=== PATIENT | female | born 1995 | race Caucasian/White ===

== ENCOUNTER 2017-11-12 18:19 | Emergency (ER) | payer OTHER ==
--- NOTE | 2017-11-12 18:59 | EDPHY ---
H & P Stated Complaint: ST, left eye discharge, jaw pain Time Seen by Provider: 11/12/17 18:58 HPI/ROS: HPI: Is a 22-year-old female who presents with Chief Complaint: ST, left eye discharge, jaw pain Location: Throat Quality: Sore Duration: 3 days Signs and Symptoms: No fever, no cough, + ear pain, + left eye discharge, no itchy watery eye, no nasal congestion, no headache, stiff neck Timing: Daily Severity: [id number] Context: Patient is generally healthy presents with complaints of sore throat x4 days but still able to eat and drink denies fever, cough, neck stiffness, headache. Patient also woke up this morning with left eye discharge that was green in color. Denies any eye redness/visual floaters/visual changes/foreign bodies. Does not wear contact lenses. Patient has tried no [id number] medication. Modifying Factors: None Comment: ROS: see HPI Constitutional: No fever, no chills, no weight loss Eyes: No blurred vision Respiratory: No shortness of breath, no cough Cardiovascular: No chest pain Gastrointestinal: No nausea, no vomiting, no diarrhea Genitourinary: No dysuria Extremities: No myalgias Neurologic: No weakness, no numbness Skin: No rashes Hematologic: No bruising, no bleeding MEDICAL/SURGICAL/SOCIAL HISTORY: Medical history: Depression Surgical history: Denies Social history: Student. CONSTITUTIONAL: Extremely well-appearing teenage white female, awake and alert , no obvious distress HEENT: Atraumatic and normocephalic, PERRL, EOMI. Conjunctiva clear; white matting noted in eyelashes bilaterally. Tympanic membranes clear. Oropharynx clear, no tonsillar hypertrophy, no exudate and moist pink mucosa. Airway patent. No lymphadenopathy. No meningismus. Cardiovascular: Normal S1/S2, regular rate, regular rhythm, without murmur rub or gallop. PULMONARY/CHEST: Symmetrical and nontender. Clear to auscultation bilaterally. Good air movement. No accessory muscle usage. ABDOMEN: Soft, nondistended, nontender, no rebound, no guarding, no peritoneal signs, no masses or organomegaly. No CVAT. EXTREMITIES: 2/2 pulses, strength 5/5, no deformities, no clubbing, no cyanosis or edema. NEUROLOGICAL: no focal neuro deficits. GCS 15. SKIN: Warm and dry, no erythema. no rash. Good capillary refill. Source: Patient Exam Limitations: No limitations - Personal History Current Tetanus/Diphtheria Vaccine: Yes Current Tetanus Diphtheria and Acellular Pertussis (TDAP): Yes Tetanus Vaccine Date: < 10 years - Medical/Surgical History Hx Asthma: No Hx Chronic Respiratory Disease: No Hx Diabetes: No Hx Cardiac Disease: No Hx Renal Disease: No Hx Cirrhosis: No Hx Alcoholism: No Hx HIV/AIDS: No Hx Splenectomy or Spleen Trauma: No Other PMH: none - Social History Smoking Status: Never smoked Constitutional: Initial Vital Signs Temperature (C) 37.5 C 11/12/17 18:23 Heart Rate 78 11/12/17 18:23 Respiratory Rate 20 11/12/17 18:23 Blood Pressure 100/60 11/12/17 18:23 O2 Sat (%) 97 11/12/17 18:23 O2 Delivery Mode Room Air Allergies/Adverse Reactions: No Known Allergies Allergy (Unverified 11/12/17 18:22) Home Medications: Medication Instructions Recorded Dextromethorphan/Benzocaine 1 each PO Q4 PRN #15 lozenge 11/12/17 [Cepacol Sorethroat-Cough Zuly] FLUoxetine 11/12/17 Medical Decision Making ED Course/Re-evaluation: Strep test, oral and ophthalmic meds ordered Does not wear contact lenses. Strep negative Given tobramycin ophth gtt, viscous lidocaine, p.o. Decadron 8 mg and 100 mg of ibuprofen with adequate relief No signs of airway compromise/tonsillar abscess/meningitis/Lasha's angina Advised supportive care This patient was seen under the supervision of my secondary supervising physician. I evaluated care for this patient independently. Differential Diagnosis: Differential diagnosis includes but is not limited to strep pharyngitis, viral pharyngitis, otitis media, conjunctivitis, viral syndrome. - Data Points Laboratory Results: 11/12/17 11/12/17 Unknown 19:15 Group A Strep Screen NEGATIVE (NEGATIVE) Group A Strep DNA Pending Medications Given: Discontinued Medications Dexamethasone (Decadron) 8 mg PO EDNOW ONE Stop: 11/12/17 19:18 Last Admin: 11/12/17 19:28 Dose: 8 mg Ibuprofen (Motrin) 800 mg PO EDNOW ONE Stop: 03/13/18 19:18 Last Admin: 11/12/17 19:28 Dose: 800 mg Lidocaine (Lidocaine 2% Viscous) 15 ml PO EDNOW ONE Stop: 11/12/17 19:18 Last Admin: 11/12/17 19:28 Dose: 15 ml Tobramycin (Tobrex 0.3% Opht Drops Prepack) 1 btl TAKEHOME EDNOW ONE Stop: 11/12/17 19:18 Last Admin: 11/12/17 19:28 Dose: 1 btl Departure - Departure Disposition: Home, Routine, Self-Care Clinical Impression: Viral pharyngitis Conjunctivitis Qualifiers: Conjunctivitis type: acute Acute conjunctivitis type: unspecified Laterality: bilateral Qualified Code(s): H10.33 - Unspecified acute conjunctivitis, bilateral Condition: Good Instructions: Conjunctivitis (ED) Additional Instructions: Your rapid strep was negative today. The throat swab will be sent for culture. Use Tobramycin drops 1-2 drops both eyes every 4 hr while awake x5 days. Take Tylenol 650 mg every 4 hours and/or Ibuprofen 600 mg every 8 hours with food as needed for pain. Perform salt water gargles every 4 hr for sore throat. If you are unable to drink fluids, eat popsicles. Apply cool compresses every 6 hr for the next several days to decrease inflammation. This patient was seen under the supervision of my secondary supervising physician. I evaluated care for this patient independently. Referrals: [facility] ,. [Edm Groups for Call Sched] - 5-7 days, if not improved Prescriptions: Dextromethorphan/Benzocaine [Cepacol Sorethroat-Cough Zuly] 1 each PO Q4 PRN #15 lozenge PRN Reason: Sore Throat
[2017-11-12] MEDS ORDERED: LIDOCAINE 2% VISCOUS 15 ML UDCUP PO ONE (19:17)
[2017-11-12] MEDS ORDERED: TOBRAMYCIN 0.3% SOLN PREPACK OPHT.BTL TAKEHOME ONE (19:17)
[2017-11-12] MEDS ORDERED: IBUPROFEN 800 MG TAB PO ONE (19:17)
[2017-11-12] MEDS ORDERED: DEXAMETHASONE 4 MG TAB PO ONE (19:17)
[2017-11-12 20:14] VITALS: BP 102/55; PULSE 75; RESP 18; TEMP 98.6; O2SAT 94
== END 2017-11-12 20:14 | disposition home or self-care (01) ==
DX: J02.8 Acute pharyngitis due to other specified organisms (principal); B97.89 Other viral agents as the cause of diseases classified elsewhere; H10.33 Unspecified acute conjunctivitis, bilateral